=== PATIENT | male | born 1990 | race Caucasian/White ===

== ENCOUNTER 2019-03-11 08:40 | Day surgery (SDC) | payer BC ==
[~2019-03-11 08:40] MED LIST: EPINEPHrine 1 MG/ML 30 ML MDV ONE; Lactated Ringers 1,000 ML IV SCH; Lidocaine 1%/Sod Bicarbonate in NS 8.4% 1 ML Syringe IDERM PRN; Sodium Chloride 0.9% 10 ML Syringe FLUSH PRN
[2019-03-11] MEDS ORDERED: Propofol 200 MG/20 ML SDV ONE (09:00)
[2019-03-11] MEDS ORDERED: fentaNYL 100 MCG/2 ML SDV ONE ×2 (09:00→11:34)
[2019-03-11] MEDS ORDERED: Midazolam 1 MG/ML 2 ML SDV ONE (09:01)
[2019-03-11] MEDS ORDERED: Bupivacaine 0.25% 30 ML SDV ONE (09:44)
--- NOTE | 2019-03-11 09:52 | PCM.PREANE ---
Preanesthetic Assessment - Anesthesia/Transfusion/Family Hx Anesthesia History: Prior Anesthesia Without Reaction Family History of Anesthesia Reaction: No Transfusion History: No Prior Transfusion(s) Intubation History: Unknown - Review of Systems General: No Symptoms Pulmonary: No Symptoms Cardiovascular: No Symptoms Gastrointestinal: No Symptoms Neurological: No Symptoms Other: Reports: None - Physical Assessment NPO Status Date: 03/10/19 NPO Status Time: 20:30 O2 Sat by Pulse Oximetry: 98 Respiratory Rate: 16 Vital Signs: Last Vital Signs Temp 36.3 C 03/11/19 09:00 Pulse 67 03/11/19 09:00 Resp 16 03/11/19 09:00 BP 130/67 03/11/19 09:00 Pulse Ox 98 03/11/19 09:00 Height: 1.78 m Weight: 83.915 kg ASA Class: 1 Mental Status: Alert & Oriented x3 Dentition: Reports: Normal Dentition ROM/Head Extension: Full Lungs: Clear to Auscultation, Normal Respiratory Effort Cardiovascular: Regular Rate, Regular Rhythm - Lab Values: Laboratory Last Values WBC 10.54 K/mm3 (4.23-9.07) H 03/05/19 12:08 RBC 4.99 M/mm3 (4.63-6.08) 03/05/19 12:08 Hgb 14.7 gm/L (13.7-17.5) 03/05/19 12:08 Hct 41.6 % (40.1-51.0) 03/05/19 12:08 MCV 83.4 fl (79.0-92.2) 03/05/19 12:08 MCH 29.5 pg (25.7-32.2) 03/05/19 12:08 MCHC 35.3 g/dl (32.2-35.5) 03/05/19 12:08 RDW Std Deviation 40.3 fL (35.1-43.9) 03/05/19 12:08 Plt Count 336 K/mm3 (163-337) 03/05/19 12:08 MPV 7.8 fl (9.4-12.3) L 03/05/19 12:08 Sodium 139 mEq/L (136-145) 03/05/19 12:08 Potassium 4.4 mEq/L (3.5-5.1) 03/05/19 12:08 Chloride 103 mEq/L (98-107) 03/05/19 12:08 Carbon Dioxide 27 mEq/L (21-32) 03/05/19 12:08 Anion Gap 13.4 (5-15) 03/05/19 12:08 BUN 16 mg/dL (7-18) 03/05/19 12:08 Creatinine 1.1 mg/dL (0.7-1.3) 03/05/19 12:08 Est Cr Clr Drug Dosing TNP 03/05/19 12:08 Estimated GFR (MDRD) > 60 mL/min (>60) 03/05/19 12:08 BUN/Creatinine Ratio 14.5 (14-18) 03/05/19 12:08 Glucose 93 mg/dL (74-106) 03/05/19 12:08 Calcium 9.3 mg/dL (8.5-10.1) 03/05/19 12:08 MRSA (PCR) Negative 03/05/19 12:08 - Allergies Allergies/Adverse Reactions: Allergies Allergy/AdvReac Type Severity Reaction Status Date / Time No Known Allergies Allergy Verified 03/11/19 09:37 - Blood Blood Available: No - Anesthesia Plan Pre-Op Medication Ordered: None - Acknowledgements Anesthesia Type Planned: General Anesthesia Pt an Appropriate Candidate for the Planned Anesthesia: Yes Alternatives and Risks of Anesthesia Discussed w Pt/Guardian: Yes Pt/Guardian Understands and Agrees with Anesthesia Plan: Yes PreAnesthesia Questionnaire HEENT History: Reports: Other (See Below) Other HEENT History: Seasonal allergies Cardiovascular History: Reports: None Respiratory History: Reports: None Gastrointestinal History: Reports: None Genitourinary History: Reports: None Musculoskeletal History: Reports: None Neurological History: Reports: None Psychiatric History: Reports: None Endocrine/Metabolic History: Reports: None Hematologic History: Reports: None Immunologic History: Reports: None Oncologic (Cancer) History: Reports: None Dermatologic History: Reports: None - Past Surgical History Head Surgeries/Procedures: Reports: None HEENT Surgical History: Other HEENT Surgeries/Procedures: Nasal surgery, wisdom teeth extraction Cardiovascular Surgical History: Reports: None Respiratory Surgical History: Reports: None GI Surgical History: Reports: Appendectomy Male Surgical History: Reports: None Endocrine Surgical History: Reports: None Neurological Surgical History: Reports: None Musculoskeletal Surgical History: Reports: None Oncologic Surgical History: Reports: None Dermatological Surgical History: Reports: None - SUBSTANCE USE Smoking Status *Q: Former Smoker Tobacco Use Within Last Twelve Months: Snuff/Dip Second Hand Smoke Exposure: No Recreational Drug Use History: No - HOME MEDS Home Medications: Home Meds Acetaminophen/HYDROcodone [[place] 325-5 MG] 1 - 2 tab PO Q6H PRN #20 tablet 03/11 [Rx] Aspirin 325 mg PO BID #84 tab 03/11/19 [Rx] Fexofenadine [Rina] 180 mg PO DAILY PRN 03/11/19 [History] - CURRENT (IN HOUSE) MEDS Current Meds: Current Medications Lactated Ringer's (Ringers, Lactated) 1,000 mls @ 125 mls/hr IV ASDIRECTED JUDITH Stop: 03/11/19 23:00 Last Admin: 03/11/19 09:15 Dose: 125 mls/hr Lidocaine/Sodium Bicarbonate (Buffered Lidocaine 1% In Ns 8.4%) 0.25 ml IDERM ONETIME PRN PRN Reason: Prior to IV Start Stop: 03/11/19 18:00 Last Admin: 03/11/19 09:15 Dose: 0.25 ml Sodium Chloride (Saline Flush) 10 ml FLUSH ASDIRECTED PRN PRN Reason: Keep Vein Open Stop: 03/11/19 18:00 Discontinued Medications Bupivacaine HCl (Marcaine 0.25%) Confirm Administered Dose 30 ml .ROUTE .STK- MED ONE Stop: 03/11/19 09:45 Epinephrine HCl (Adrenalin) 3 mg .XX ONETIME ONE Stop: 03/11/19 08:01 Fentanyl (Sublimaze) Confirm Administered Dose 100 mcg .ROUTE .STK-MED ONE Stop: 03/11/19 09:01 Midazolam HCl (Versed 1 Mg/Ml) Confirm Administered Dose 2 mg .ROUTE .STK-MED ONE Stop: 03/11/19 09:02 Propofol (Diprivan 20 Ml) Confirm Administered Dose 200 mg .ROUTE .STK-MED ONE Stop: 03/11/19 09:01
[2019-03-11] MEDS ORDERED: Ondansetron 4 MG/2 ML SDV ONE (09:59)
[2019-03-11] MEDS ORDERED: Ketorolac 15 MG/ML SDV ONE (09:59)
[2019-03-11] MEDS ORDERED: Dexamethasone 4 MG/ML SDV ONE (11:17)
[2019-03-11] MEDS ORDERED: ceFAZolin 1 GM Vial ONE ×3 (11:17)
[2019-03-11] MEDS ORDERED: Lactated Ringers 1,000 ML ONE (11:26)
--- NOTE | 2019-03-11 12:12 | PCM48HPAN ---
Post Anesthesia Note - EVALUATION WITHIN 48HRS OF ANESTHETIC Vital Signs in Normal Range: Yes Patient Participated in Evaluation: Yes Respiratory Function Stable: Yes Airway Patent: Yes Cardiovascular Function Stable: Yes Hydration Status Stable: Yes Pain Control Satisfactory: Yes Nausea and Vomiting Control Satisfactory: Yes Mental Status Recovered: Yes Resp Rate: 14
--- NOTE | 2019-03-11 12:12 | PCM.POSTAN ---
POST ANESTHESIA ASSESSMENT - MENTAL STATUS Mental Status: Alert - RESPIRATORY Respiratory Status: Respiratory Rate WNL, Airway Patent, O2 Saturation Stable, Supplemental Oxygen - CARDIOVASCULAR CV Status: Pulse Rate WNL, Blood Pressure Stable - GASTROINTESTINAL GI Status: No Symptoms - POST OP HYDRATION Hydration Status: Adequate & Stable
--- NOTE | 2019-03-15 07:26 | PCM.OPNOTE ---
- General Post-Op/Procedure Note Date of Surgery/Procedure: 03/11/19 Operative Procedure(s): right knee video arthroscopy with partial medial meniscectomy Pre Op Diagnosis: right knee medial meniscus tear Post-Op Diagnosis: Same Anesthesia Technique: General LMA, Local Primary Surgeon: David Spence Anesthesia Provider: Daniel Alexis EBArnoldo in mLs: 0 Complications: None Condition: Good
--- NOTE | 2019-03-15 11:09 | OR ---
DATE OF OPERATION: 03/11/2019 SURGEON: David Spence MD OPERATION PERFORMED: Right knee video arthroscopy with partial medial meniscectomy. PREOPERATIVE DIAGNOSIS: Right knee medial meniscus tear. POSTOPERATIVE DIAGNOSIS: Right knee medial meniscus tear. ANESTHESIA: General LMA with local. ANESTHESIA PROVIDER: Daniel Alexis CRNA ECHO VASCULAR TECHNOLOGIST: None. ESTIMATED BLOOD LOSS: 0 mL. COMPLICATIONS: None. CONDITION: Stable DESCRIPTION OF PROCEDURE: The patient was identified in the preop holding area. Proper site was marked and identified by the surgeon. The patient was taken back to the operating theater where after adequate anesthesia, the patient's left lower extremity was placed in a well-leg jolly. Right lower extremity was placed in a C-clamp jolly after a nonsterile tourniquet applied. Right lower extremity was then sterilely prepped and draped in the usual sterile fashion. OR time-out was performed. The patient received 2 g IV Ancef. At this time, right lower extremity was exsanguinated. Tourniquet was insufflated to 250 mmHg. Standard anterolateral portal incision was made. Scope trocar was introduced in the knee. At this time, patellofemoral joint showed no signs of chondromalacia. Attention was turned to the medial compartment. With the use of a spinal needle, an anteromedial portal was then created. The patient had no signs of chondromalacia of the medial compartment. There was noted to be a posterior 3rd tear that was noted to be horizontal in nature at this time. It was brought back to a stable rim with a partial medial meniscectomy of the posterior 3rd leaving a good rim of the posterior portion intact taking only roughly half of it. At this time, it was found to be stable. Attention was turned to the notch. The patient was noted to have slight laxity of the ACL, although it had scarred into the notch. The lateral compartment showed no articular damage. At this time, excess saline was drained from the knee. A 3-0 nylon simple suture was used for closure of the skin. The patient was placed in a sterile soft dressing and sent to the PACU in stable condition. MMODAL /[id number]
== END 2019-03-11 13:31 | disposition home or self-care (01) ==
LOC: JD.SDS 08:40
PROVIDERS: ATTEND Orthopaedic Surgery
DX: S83.241A Other tear of medial meniscus, current injury, right knee, initial encounter (principal); X58.XXXA Exposure to other specified factors, initial encounter; Z87.891 Personal history of nicotine dependence; Z79.82 Long term (current) use of aspirin; Z79.899 Other long term (current) drug therapy
CPT/HCPCS: 29881; 36415; 80048; 85027; 87641; J0171; J0690; J1100; J1885; J2250; J2405; J2704; J3010; J3490; J7120; 01400